=== PATIENT | female | born 1995 | race Hispanic/Latino ===

== ENCOUNTER 2021-11-01 08:14 | Outpatient (CLI) | payer OTHER ==
[2021-11-01] MEDS ORDERED: Iopamidol-370 76% 500 ML 1 ML ONE (13:27)
== END 2021-11-01 08:15 | disposition home or self-care (01) ==
LOC: BICCT 08:14
PROVIDERS: ATTEND Internal Medicine
DX: N83.201 Unspecified ovarian cyst, right side (principal); R63.4 Abnormal weight loss
CPT/HCPCS: 74177; Q9967

== ENCOUNTER 2023-03-15 07:58 | Outpatient (CLI) | payer OTHER | END 2023-03-15 07:59 | disposition home or self-care (01) | LOC: BICCT 07:58 | PROVIDERS: ATTEND Psychiatry & Neurology Neurology | DX: G40.909 Epilepsy, unspecified, not intractable, without status epilepticus (principal); J32.9 Chronic sinusitis, unspecified | CPT/HCPCS: 70450 ==